=== PATIENT | female | born 1975 | race Caucasian/White ===

== ENCOUNTER 2021-05-18 20:58 | Emergency (ER) | payer OTHER, MEDICAID ==
[~2021-05-18] VITALS: Ht 165.1 cm; Wt 136.1 kg
[2021-05-19] MEDS ORDERED: MEDROLDOSEPACK PO (00:42)
[2021-05-19] MEDS ORDERED: ZPAK PO (00:42)
[2021-05-19 00:59] VITALS: BP 121/69
--- NOTE | 2021-05-19 13:20 | EKG ---
[place] [address] ELECTROCARDIOGRAM REPORT Name: SILVERIO,MYA Room: [facility]#: [id number] Admission: 05/18/21 Attend Phys: Discharge: 05/19/21 Date of : 75 Date of Service: 05/18/212123 Report #: [id number] THIS REPORT FOR: //name// [facility] ED Test Date: 2021-05-18 Test Time: 21:24:31 Pat Name: MYA SAWYER Department: Room: Gender: F [employer] Helper: MD : [id number] Requested By: Shabana David Order Number: [id number] MD: Chavez Corado Measurements Intervals [place] Rate: 92 P: 7 DC: 170 QRS: -21 QRSD: 94 T: 19 QT: 365 QTc: 452 Interpretive Statements Sinus rhythm Delayed R wave progression over the anterior precordium Baseline wander in lead(s) II,V1,V2 No previous ECG available for comparison Electronically Signed On 05-19-2021 13:20:01 DIRECTOR OF SPECIAL EDUCATION by Chavez Corado [email or web address] <ELECTRONICALLY SIGNED> By: Chavez Corado MD, [facility] 05/19/21 1320 23 23 Chavez Corado MD, [facility] /EPI
== END 2021-05-19 00:59 | disposition home or self-care (01) ==
LOC: M.ERS 20:58
DX: U07.1 COVID-19 (principal); J12.82 Pneumonia due to coronavirus disease 2019; J45.909 Unspecified asthma, uncomplicated; Z98.890 Other specified postprocedural states; Z87.42 Personal history of other diseases of the female genital tract; Z88.0 Allergy status to penicillin; Z88.2 Allergy status to sulfonamides